=== PATIENT | male | born 2005 | race Two or more races ===

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

== ENCOUNTER 2025-01-05 18:12 | Emergency (ER) | payer MEDICAID, SELFPAY ==
[2025-01-05 18:12] VITALS: BMI 26.6
[2025-01-05 18:31] VITALS: BP 115/62; PULSE 112; RESP 16; TEMP 37.1; O2SAT 98
--- NOTE | 2025-01-05 19:35 | EDNOTE_ITS ---
ED Fever RME/HPI General Chief Complaint: Fever Stated Complaint: FEVER/ ON CHEMO Time Seen by Provider: 01/05/25 18:45 Arrival date/time: 01/05/25 18:12 RME / HPI RME / HPI Narrative: 19-year-old male presents to the ED with complaint of low-grade temperature and sore throat. Patient has Hodgkin's lymphoma, diagnosed May 2024, and is currently undergoing chemo. His last white count was at 2.0 with an unknown absolute neutrophil count. His last chemo was 3 weeks ago and has been delayed several times due to the low ANC. He states his brother has been ill with similar symptoms. He has had runny nose, nasal congestion but denies ear pain, cough, nausea or vomiting, diarrhea or abdominal pain. Related Data Allergies Allergy/AdvReac Type Severity Reaction Status Date / Time Penicillins Allergy ITCHING Verified 01/05/25 18:14 Review of Systems Review of Systems Systems Reviewed: All systems reviewed, normal except as documented Past Medical History Social History SMOKING STATUS: Never smoker Past Medical History Comments [facility] COMMENT: Hodgkin's lymphoma, currently undergoing chemotherapy. Physical Exam Narrative Physical exam: Aaliyah 19-year-old male, no acute distress. Lungs are clear, regular rate and rhythm. Tender anterior cervical chain adenopathy is noted. TMs are without erythema, pharynx is with erythema and without exudate. Nares are with erythema and edema. Abdomen is soft and nontender. Extremities are without edema. Course Course Course Narrative: 19-year-old male presents to the ED with complaint of low-grade temperature and sore throat. Patient has Hodgkin's lymphoma, diagnosed May 2024, and is currently undergoing chemo. His last white count was at 2.0 with an unknown absolute neutrophil count. His last chemo was 3 weeks ago and has been delayed several times due to the low ANC. He states his brother has been ill with similar symptoms. He has had runny nose, nasal congestion but denies ear pain, cough, nausea or vomiting, diarrhea or abdominal pain. Aaliyah 19-year-old male, no acute distress. Lungs are clear, regular rate and rhythm. Tender anterior cervical chain adenopathy is noted. TMs are without erythema, pharynx is with erythema and without exudate. Nares are with erythema and edema. Abdomen is soft and nontender. Extremities are without edema. Orders Category Date Time Status Bedside COVID-19 Antigen Test NOW Care 01/05/25 19:41 Active Bedside Influenza A&B Antigen Test NOW Care 01/05/25 19:41 Completed XR chest 2V Stat Exams 01/05/25 21:13 Completed Blood Culture (Lab) Stat Lab 01/05/25 19:51 Received CBC Stat Lab 01/05/25 19:48 Completed CRP [C-Reactive Protein] Stat Lab 01/05/25 19:48 Completed Comprehensive Metabolic Panel Stat Lab 01/05/25 19:48 Completed ESR [Sed Rate (ESR)] Stat Lab 01/05/25 19:48 Completed LDH (Lactate Dehydrogenase) Stat Lab 01/05/25 19:48 Completed Lactate (Lactic Acid) Stat Lab 01/05/25 19:48 Completed Partial Thromboplastin Time Stat Lab 01/05/25 19:48 Completed Procalcitonin Stat Lab 01/05/25 19:48 Completed Prothrombin Time with INR Stat Lab 01/05/25 19:48 Completed Strep A Rapid Stat Lab 01/05/25 19:46 Completed Acetaminophen Supp [Tylenol Supp] Med 01/05/25 19:38 Discontinued 650 mg NJ Q8HR PRN Acetaminophen Tab [Tylenol Tab] Med 01/05/25 21:11 Discontinued 650 mg PO X1 ONE Vital Signs Vital signs: Vital Signs Temperature 98.8 F 01/05/25 18:31 Pulse Rate 112 H 01/05/25 18:31 Respiratory Rate 16 01/05/25 18:31 Blood Pressure 115/62 01/05/25 18:31 Pulse Oximetry (%) 98 01/05/25 18:31 Oxygen Delivery Method Room Air 01/05/25 18:31 Fever Medications / Prescriptions Medication administrations:: Medication Administration History Discontinued Medications Acetaminophen (Acetaminophen Supp 650 Mg Supp) 650 mg NJ Q8HR PRN PRN Reason: Fever > 100.4 Stop: 02/04/25 19:37 Acetaminophen (Acetaminophen 325 Mg Tablet) 650 mg PO X1 ONE Stop: 01/05/25 21:12 Last Admin: 01/05/25 22:22 Dose: 650 mg Documented By: GUILLE Discharge Plan Plan Patient Disposition: HOME (Self Care) Discharge Disposition comment: Stable Prescriptions/Referrals Referrals: No Primary/Family,Physician [Primary Care Provider] - In 1 week Problem List Clinical Impression: Fever of unknown origin Patient/Caregiver Discharge Instructions Education Materials: ED FUO Adult Additional Instructions: Contact Dr. Ashby's office first thing Monday morning to schedule an appointment for urgent follow-up. Follow-up with your primary care physician within 24 hours. Return to the ED for any new or worsening symptoms. Print Language: Bermudian Stand Alone Forms: Marii Award Info., Patient Portal Info Letter PA/ORACLE HYPERION CONSULTANT Supervising Physician PA/ORACLE HYPERION CONSULTANT Supervising Physician: Dr. Benton
[2025-01-05 20:01] LABS: Lactate (Lactic Acid) 0.8 mMol/L (0.4-2.0)
[2025-01-05 20:04] LABS: Basophils # (Auto) 0.1 Thou/mm3 (0.0-0.2); Basophils % (Auto) 1 % (0-2.5); Eosinophils # (Auto) 0.2 Thou/mm3 (0.0-0.5); Eosinophils % (Auto) 2 % (0-10); Hematocrit 39.2 % (41.0-53.0); Hemoglobin 12.9 g/dL (13.5-16.0); Immature Granulocytes % (Auto) 0 % (0-0); Immature Granulocytes Auto 0.01 Thou/mm3 (0.00-0.00); Lymphocytes # (Auto) 1.2 Thou/mm3 (1.0-5.0); Lymphocytes % (Auto) 12 % (10-50); Mean Corpuscular HGB Conc 32.9 g/dl (31.0-37.0); Mean Corpuscular Hemoglobin 26.3 pg (25.0-35.0); Mean Corpuscular Volume 80 fL (80-100); Monocytes # (Auto) 0.7 Thou/mm3 (0.0-0.8); Monocytes % (Auto) 7 % (0-12); Neutrophils # (Auto) 7.8 Thou/mm3 (1.8-7.7); Neutrophils % (Auto) 79 % (37-80); Nucleated Red Blood Cell % 0 /100 WBC (0); Platelet Count 274 Thou/mm3 (140-440); RDW Standard Deviation 50.2 fL (35.1-43.9); Red Blood Count 4.91 Miln/mm3 (4.50-5.90); White Blood Count 9.9 Thou/mm3 (4.5-11.0)
[2025-01-05 20:16] LABS: Sed Rate (ESR) 14 mm/hr (0-15)
[2025-01-05 20:17] LABS: INR 1.1 (0.9-1.3); Partial Thromboplastin Time 26.3 Seconds (22.0-36.0); Prothrombin Time 11.6 Seconds (9.0-12.2)
[2025-01-05 20:18] LABS: Strep A Rapid Negative (Negative)
[2025-01-05 20:37] LABS: Alanine Aminotransferase 74 U/L (10-49); Albumin, Serum 4.7 gm/dL (3.5-5.0); Alkaline Phosphatase 166 U/L (46-116); Anion Gap 10 (7-16); BUN/Creatinine Ratio 24 Ratio (12-20); Bilirubin,Total 0.2 mg/dL (0.3-1.2); Blood Urea Nitrogen 19 mg/dL (9-23); Chloride 109 mMol/L (98-107); Creatinine (Component) 0.8 mg/dL (0.6-1.3); Estimated Creatinine Clearance 138.9 mL/min (>60); Globulin 2.3 gm/dL (2.3-3.5); Glucose 92 mg/dL (74-106); LDH (Lactate Dehydrogenase) 209 U/L (120-246); Osmolality,Calculated 292 (275-295); Potassium 4.2 mMol/L (3.4-5.1); Procalcitonin 0.08 ng/ml (0.0-0.49); Sodium 146 mMol/L (136-145); eGFR > 60 See Note
[2025-01-05 20:39] LABS: C-Reactive Protein < 0.5 mg/dL (0.0-0.9)
--- NOTE | 2025-01-05 21:13 | XR_ITS ---
Examination: PA lateral chest 2 views TECHNIQUE: Upright PA and lateral chest 2 views Date time: January 05, [id number] hours INDICATIONS: Sore throat congestion today, diagnosis Hodgkin's lymphoma undergoing chemotherapy FINDINGS: Normal heart size No pneumonia or pulmonary edema Right subclavian Port-A-Cath tip satisfactory position IMPRESSION: No pneumonia or pulmonary edema
[2025-01-05] MEDS: ACETAMINOPHEN 325 MG TABLET 650 MG PO (22:22)
[2025-01-05] MEDS: cefTRIAXone 1,000 MG, LIDOCAINE 1% 20 ML 2.1 ML IM (23:46)
== END 2025-01-05 23:49 | disposition home or self-care (01) ==
PROVIDERS: Physician Assistant; Emergency Provider Emergency Medicine
DX: R50.9 Fever, unspecified (principal); R09.89 Other specified symptoms and signs involving the circulatory and respiratory systems; R09.81 Nasal congestion; C81.90 Hodgkin lymphoma, unspecified, unspecified site
CPT/HCPCS: 36415; 71046; 80053; 83605; 83615; 84145; 85025; 85610; 85652; 85730; 86140; 87040; 87400; 87651; 87811; 96372; 99283; J0696; J3490; A9270

== ENCOUNTER 2025-01-07 01:13 | Emergency (ER) | payer OTHER, MEDICAID, SELFPAY ==
[2025-01-07 01:15] VITALS: BMI 10.9
[2025-01-07 01:29] VITALS: BP 111/53; PULSE 112; RESP 16; TEMP 38.2; O2SAT 97
--- NOTE | 2025-01-07 01:39 | EDNOTE_ITS ---
<Statement entered by Lorrie Montoya MD - 01/22/25 21:07> As co-signing physician, I was present and available for consult prn. I concur with the plan and care as documented by the midlevel provider. ED Fever RME/HPI General Chief Complaint: Fever Stated Complaint: FEVER Time Seen by Provider: 01/07/25 01:30 Arrival date/time: 01/07/25 01:13 RME / HPI RME / HPI Narrative: Very pleasant 19-year-old male, with a medical history including Hodgkin's lymphoma, currently on chemo, presents to the ED with a complaint of fever of 101.8. He was seen here a few nights ago with a low-grade fever of 100.5. A complete workup was done however no source of infection was found. His previous white count was 2.0 and was elevated at his last visit, his ANC is usually at 0.5 and it was also elevated significantly higher at his last visit. Mother is concerned because his brother is ill with viral URIs. Related Data Allergies Allergy/AdvReac Type Severity Reaction Status Date / Time Penicillins Allergy ITCHING Verified 01/05/25 18:14 Review of Systems Review of Systems Systems Reviewed: All systems reviewed, normal except as documented Past Medical History Past Medical History CARDIAC: Negative Congestive Heart Failure RESPIRATORY: Negative Chronic Obstructive Pulmonary Disease (COPD) GENITOURINARY: Negative Renal Disease ENDOCRINE: Negative Diabetes Mellitus Type 1 or Diabetes Mellitus Type 2 Social History SMOKING STATUS: Never smoker Physical Exam Narrative Physical exam: Pleasant 19-year-old male, no acute distress. Non-toxic appearing. Lungs are clear, regular rate and rhythm. Tender anterior cervical chain adenopathy is noted. Abdomen is soft and nontender. Extremities are without edema. Course Course Course Narrative: COVID, influenza A/B are negative. Rapid strep is also negative. Labs reveal a white count of 4.0, low H&H of 12.5/37.5, absolute neutrophil count of 2.1. PT is minimally elevated at 12.4. ABG is normal. Chemistry panel reveals minimally elevated chloride at 108, phosphorus, magnesium, lactic acid, LDH, troponin, lipase, and procalcitonin are all normal. Urinalysis reveals clear yellow urine with a specific gravity of 1.039 with no bacteria, negative leukocyte esterase, negative nitrates. Chest x-ray obtained with no acute process noted. Patient will be discharged home with instruction to follow-up with his oncologist. Quality Measures Current suspected stage: ruled out Reason for ruling out sepsis: Normal white count, normal lactic, normal procalcitonin, negative urine and Possible source: unknown Blood cultures ordered: yes Antibiotic ordered: No Pertinent labs: 01/07/25 02:34 Lactic Acid 0.8 mMol/L (0.4-2.0) Procalcitonin 0.13 ng/ml (0.0-0.49) sepsis Orders Category Date Time Status Bedside COVID-19 Antigen Test NOW Care 01/07/25 01:42 Completed Bedside Influenza A&B Antigen Test NOW Care 01/07/25 01:44 Completed Assistant Sales Manager STAT Care 01/07/25 01:42 Completed Continuous Pulse Oximetry STAT Care 01/07/25 01:42 Completed EKG (ED ONLY) *Do not use* NOW Care 01/07/25 01:42 Completed Insert IV NOW Care 01/07/25 01:42 Completed NPO STAT Care 01/07/25 01:42 Completed Strict Intake and Output Routine Care 01/07/25 01:42 Ordered EKG (ED Only) Stat Exams 01/07/25 01:42 Draft XR chest 2V Stat Exams 01/07/25 04:29 Completed Arterial Blood Gas Stat Lab 01/07/25 03:33 Completed Blood Culture (Lab) Stat Lab 01/07/25 02:39 Completed CBC Stat Lab 01/07/25 02:34 Completed Comprehensive Metabolic Panel Stat Lab 01/07/25 02:34 Completed LDH (Lactate Dehydrogenase) Stat Lab 01/07/25 02:34 Completed Lactate (Lactic Acid) Stat Lab 01/07/25 02:34 Completed Lipase Stat Lab 01/07/25 02:34 Completed Magnesium Stat Lab 01/07/25 02:34 Completed Partial Thromboplastin Time Stat Lab 01/07/25 02:34 Completed Phosphorous Stat Lab 01/07/25 02:34 Completed Procalcitonin Stat Lab 01/07/25 02:34 Completed Prothrombin Time with INR Stat Lab 01/07/25 02:34 Completed Strep A Rapid Stat Lab 01/07/25 03:27 Completed Troponin I Stat Lab 01/07/25 02:34 Completed Urinalysis Stat Lab 01/07/25 02:44 Completed Urine Culture Stat Lab 01/07/25 02:44 Completed Acetaminophen Tab [Tylenol ES Tab] Med 01/07/25 02:19 Discontinued 1,000 mg PO X1 ONE Vital Signs Vital signs: Vital Signs Temperature 100.8 F H 01/07/25 01:29 Pulse Rate 112 H 01/07/25 01:29 Respiratory Rate 16 01/07/25 01:29 Blood Pressure 111/53 L 01/07/25 01:29 Pulse Oximetry (%) 97 01/07/25 01:29 Oxygen Delivery Method Room Air 01/07/25 01:29 Fever MDM Narrative MDM Narrative:: Very pleasant 19-year-old male, with a medical history including Hodgkin's lymphoma, currently on chemo, presents to the ED with a complaint of fever of 101.8. He was seen here a few nights ago with a low-grade fever of 100.5. A complete workup was done however no source of infection was found. His previous white count was 2.0 and was elevated at his last visit, his ANC is usually at 0.5 and it was also elevated significantly higher at his last visit. Mother is concerned because his brother is ill with viral URIs. Pleasant 19-year-old male, no acute distress. Non-toxic appearing. Lungs are clear, regular rate and rhythm. Tender anterior cervical chain adenopathy is noted. Abdomen is soft and nontender. Extremities are without edema. Vital signs blood pressure 111/53, pulse 112, respirations 16 and nonlabored, temperature 100.8, O2 sat 97% on room air. COVID, influenza A/B are negative. Rapid strep is also negative. Labs reveal a white count of 4.0, low H&H of 12.5/37.5, absolute neutrophil count of 2.1. PT is minimally elevated at 12.4. ABG is normal. Chemistry panel reveals minimally elevated chloride at 108, phosphorus, magnesium, lactic acid, LDH, troponin, lipase, and procalcitonin are all normal. Urinalysis reveals clear yellow urine with a specific gravity of 1.039 with no bacteria, negative leukocyte esterase, negative nitrates. Chest x-ray obtained with no acute process noted. Patient will be discharged home with instruction to follow-up with his oncologist. Patient data External records reviewed:: [facility] previous records Clinical information provided by:: patient Social determinants that could affect healthcare access:: none Patient has the following chronic illnesses:: Hodgkin's lymphoma How is presenting disease/condition affected by chronic disease/condition?: caused by Evaluation data The following diagnostics were reviewed and interpreted by me:: lab results and radiology exam(s) Lab and/or radiology exams considered but not ordered:: N/A Interpretation Summary: COVID, influenza A/B are negative. Rapid strep is also negative. Labs reveal a white count of 4.0, low H&H of 12.5/37.5, absolute neutrophil count of 2.1. PT is minimally elevated at 12.4. ABG is normal. Chemistry panel reveals minimally elevated chloride at 108, phosphorus, magnesium, lactic acid, LDH, troponin, lipase, and procalcitonin are all normal. Urinalysis reveals clear yellow urine with a specific gravity of 1.039 with no bacteria, negative leukocyte esterase, negative nitrates. Chest x-ray obtained with no acute process noted. Medications / Prescriptions Medications or Prescriptions considered but not ordered:: N/A Medication administrations:: Medication Administration History Discontinued Medications Acetaminophen (Acetaminophen 500 Mg Tablet) 1,000 mg PO X1 ONE Stop: 01/07/25 02:20 Last Admin: 01/07/25 05:12 Dose: 1,000 mg Documented By: CVL Tylenol 1 g p.o. Consultations Consultation(s) initiated? (list below): No Diagnosis Fever Differential Diagnosis: cellulitis, fever of unknown origin, gastroenteritis, community acquired pneumonia, pyelonephritis, viral infection, sepsis and influenza Most likely diagnosis given after review of the tests above:: Fever of unknown origin Admission Indicated Admission indicated?: not indicated Explain why admission is indicated or not indicated:: Patient is stable for discharge Admission Request Was there a request for admission?: No Disposition Plan Disposition Plan: Discharge Discharge Attestation Discharge Attestation: The patient and all family members were given an opportunity to ask questions and understood the discharge instructions. Discharge instructions specifically effects, indications for sooner follow up or return to the emergency department, and the expected course of current diagnosis. Patient condition: Stable Discharge Plan Plan Patient Disposition: HOME (Self Care) Discharge Disposition comment: Stable Prescriptions/Referrals Referrals: Anmol Ashby MD [Primary Care Provider] - In 1 week Problem List Clinical Impression: Fever of unknown origin Patient/Caregiver Discharge Instructions Education Materials: ED FUO Adult Additional Instructions: Follow-up with your oncologist later this morning. Return to the emergency room room for any new or worsening symptoms. Print Language: Yi Stand Alone Forms: Marii Award Info., Patient Portal Info Letter PA/MAGNETIC HEALER Supervising Physician PA/MAGNETIC HEALER Supervising Physician: Dr. Montoya
--- NOTE | 2025-01-07 01:42 | EKG_ITS ---
[facility] Test Date: 2025-01-07 Pat Name: JEWELL CAMPBELL Department: Room: - Gender: Male Educational Adviser: : 2005 Requested By: Domonique Severino Order Number: [id number] Reading MD: Domonique Severino Measurements Intervals [place] Rate: 119 P: 69 SC: 120 QRS: 62 QRSD: 80 T: 57 QT: 273 QTc: 385 Interpretive Statements SINUS TACHYCARDIA ABNORMAL RHYTHM ECG Compared to ECG 11/20/2024 23:33:09 No significant changes /store/S0/[id number].pdf
[2025-01-07 02:49] LABS: Collection Type, Urine Clean Catch
[2025-01-07 02:50] LABS: Lactate (Lactic Acid) 0.8 mMol/L (0.4-2.0)
[2025-01-07 02:58] LABS: Basophils % (Auto) 1 % (0-2.5); Eosinophils # (Auto) 0.1 Thou/mm3 (0.0-0.5); Eosinophils % (Auto) 2 % (0-10); Hematocrit 37.5 % (41.0-53.0); Hemoglobin 12.5 g/dL (13.5-16.0); Immature Granulocytes % (Auto) 1 % (0-0); Immature Granulocytes Auto 0.02 Thou/mm3 (0.00-0.00); Lymphocytes # (Auto) 1.1 Thou/mm3 (1.0-5.0); Lymphocytes % (Auto) 28 % (10-50); Mean Corpuscular HGB Conc 33.3 g/dl (31.0-37.0); Mean Corpuscular Hemoglobin 26.2 pg (25.0-35.0); Mean Corpuscular Volume 79 fL (80-100); Monocytes # (Auto) 0.6 Thou/mm3 (0.0-0.8); Monocytes % (Auto) 15 % (0-12); Neutrophils # (Auto) 2.1 Thou/mm3 (1.8-7.7); Neutrophils % (Auto) 54 % (37-80); Nucleated Red Blood Cell % 0 /100 WBC (0); Platelet Count 228 Thou/mm3 (140-440); RDW Standard Deviation 48.1 fL (35.1-43.9); Red Blood Count 4.77 Miln/mm3 (4.50-5.90)
[2025-01-07 03:05] LABS: INR 1.1 (0.9-1.3); Partial Thromboplastin Time 29.7 Seconds (22.0-36.0); Prothrombin Time 12.4 Seconds (9.0-12.2)
[2025-01-07 03:08] LABS: Bilirubin,Urine Negative (Negative); Blood,Urine Trace (Negative); Clarity,Urine Clear (Clear/Hazy); Color,Urine Yellow (Lt Yel-Yel); Glucose, Urine Negative (Negative); Ketones,Urine Negative (Negative); Leukocyte Esterase,Urine Negative (Negative); Nitrite,Urine Negative (Negative); Protein,Urine Trace (Neg - Trace); RBC,Urine 3 /hpf (0-3); Specific Gravity,Urine 1.039 (1.001-1.035); Squamous Epithelial Cell,Urine 1 /hpf (0-5); Urobilinogen,Urine Negative mg/dL (0.0-1.0); WBC,Urine 3 /hpf (0-5)
[2025-01-07 03:25] LABS: Alanine Aminotransferase 93 U/L (10-49); Albumin, Serum 4.6 gm/dL (3.5-5.0); Albumin/Globulin Ratio 2.2 (1.2-2.2); Alkaline Phosphatase 137 U/L (46-116); Anion Gap 10 (7-16); BUN/Creatinine Ratio 24 Ratio (12-20); Bilirubin,Total 0.3 mg/dL (0.3-1.2); Blood Urea Nitrogen 19 mg/dL (9-23); Carbon Dioxide 24.8 mMol/L (20.0-31.0); Chloride 108 mMol/L (98-107); Creatinine (Component) 0.8 mg/dL (0.6-1.3); Estimated Creatinine Clearance 66.7 mL/min (>60); Globulin 2.1 gm/dL (2.3-3.5); Glucose 96 mg/dL (74-106); LDH (Lactate Dehydrogenase) 204 U/L (120-246); Lipase 36 U/L (12-53); Magnesium 1.7 mg/dL (1.6-2.6); Osmolality,Calculated 287 (275-295); Phosphorous 4.3 mg/dL (2.4-5.1); Potassium 3.9 mMol/L (3.4-5.1); Procalcitonin 0.13 ng/ml (0.0-0.49); Sodium 143 mMol/L (136-145); Total Protein 6.7 gm/dL (5.7-8.2); Troponin I 0.025 ng/mL (0.0-0.045); eGFR > 60 See Note
[2025-01-07 03:38] LABS: Base Excess 0 (-3-3); HCO3 25 mEq/L (20-26); Inspired Oxygen, FIO2 21 %; O2 Saturation 98 % (91-98); PCO2 42 mmHg (32.0-48.0); PO2 95 mmHg (83-108); pH, Arterial 7.39 (7.35-7.45)
[2025-01-07 03:57] LABS: Allen Test Performed/OK; Puncture Site Right Radial
--- NOTE | 2025-01-07 04:29 | XR_ITS ---
Examination: PA lateral chest 2 views TECHNIQUE: Upright PA and lateral chest 2 views Date and time: January 07, 2025 at 0503 hours INDICATIONS: Fever today FINDINGS: Normal heart size Lungs are clear. The osseous structures are intact Right internal jugular Port-A-Cath tip satisfactory position SVC IMPRESSION: No pneumonia or pulmonary edema
[2025-01-07 04:43] LABS: Strep A Rapid Negative (Negative)
[2025-01-07 05:12] VITALS: TEMP 36.9
[2025-01-07] MEDS: ACETAMINOPHEN 500 MG TABLET 1000 MG PO (05:12)
[2025-01-07 06:27] VITALS: RESP 18
== END 2025-01-07 06:28 | disposition home or self-care (01) ==
PROVIDERS: Physician Assistant; Emergency Provider Emergency Medicine; PCP Internal Medicine Hematology & Oncology
DX: R50.9 Fever, unspecified (principal); C81.90 Hodgkin lymphoma, unspecified, unspecified site
CPT/HCPCS: 36415; 36600; 71046; 80053; 81001; 82803; 83605; 83615; 83690; 83735; 84100; 84145; 84484; 85025; 85610; 85730; 87040; 87086; 87400; 87651; 87811; 93005; 99284; A9270

== ENCOUNTER 2025-01-22 11:01 | Outpatient (RCR) | payer MEDICAID, SELFPAY ==
[2025-01-01 12:34] LABS: Basophils % (Auto) 2 % (0-2.5); Eosinophils # (Auto) 0.1 Thou/mm3 (0.0-0.5); Eosinophils % (Auto) 3 % (0-10); Hemoglobin 12.8 g/dL (13.5-16.0); Immature Granulocytes % (Auto) 1 % (0-0); Immature Granulocytes Auto 0.01 Thou/mm3 (0.00-0.00); Lymphocytes # (Auto) 1.1 Thou/mm3 (1.0-5.0); Lymphocytes % (Auto) 53 % (10-50); Mean Corpuscular HGB Conc 33.7 g/dl (31.0-37.0); Mean Corpuscular Hemoglobin 26.6 pg (25.0-35.0); Mean Corpuscular Volume 79 fL (80-100); Monocytes # (Auto) 0.4 Thou/mm3 (0.0-0.8); Monocytes % (Auto) 17 % (0-12); Neutrophils # (Auto) 0.5 Thou/mm3 (1.8-7.7); Neutrophils % (Auto) 25 % (37-80); Nucleated Red Blood Cell % 0 /100 WBC (0); Platelet Count 256 Thou/mm3 (140-440); Red Blood Count 4.81 Miln/mm3 (4.50-5.90)
[2025-01-01 13:08] LABS: Alanine Aminotransferase 47 U/L (10-49); Albumin, Serum 4.5 gm/dL (3.5-5.0); Albumin/Globulin Ratio 2.1 (1.2-2.2); Alkaline Phosphatase 102 U/L (46-116); Anion Gap 12 (7-16); Aspartate Amino Transferase 37 U/L (0-34); BUN/Creatinine Ratio 21 Ratio (12-20); Bilirubin,Total 0.4 mg/dL (0.3-1.2); Blood Urea Nitrogen 15 mg/dL (9-23); Calcium 8.9 mg/dL (8.3-10.6); Calcium (Corrected) 8.9 mg/dL (8.5-10.1); Carbon Dioxide 25.8 mMol/L (20.0-31.0); Chloride 105 mMol/L (98-107); Creatinine (Component) 0.7 mg/dL (0.6-1.3); Free T4 (Free Thyroxine) 1.19 ng/dL (0.89-1.76); Globulin 2.1 gm/dL (2.3-3.5); Glucose 79 mg/dL (74-106); LDH (Lactate Dehydrogenase) 199 U/L (120-246); Osmolality,Calculated 284 (275-295); Potassium 3.9 mMol/L (3.4-5.1); Sodium 143 mMol/L (136-145); Thyroid Stimulating Hormone 1.87 uIU/mL (0.55-4.78); Total Protein 6.6 gm/dL (5.7-8.2); Uric Acid 4.3 mg/dL (3.7-9.2); eGFR > 60 See Note
[2025-01-06 08:51] LABS: Basophils % (Auto) 1 % (0-2.5); Eosinophils # (Auto) 0.1 Thou/mm3 (0.0-0.5); Eosinophils % (Auto) 2 % (0-10); Hemoglobin 12.6 g/dL (13.5-16.0); Immature Granulocytes % (Auto) 0 % (0-0); Immature Granulocytes Auto 0.02 Thou/mm3 (0.00-0.00); Lymphocytes # (Auto) 0.9 Thou/mm3 (1.0-5.0); Lymphocytes % (Auto) 16 % (10-50); Mean Corpuscular HGB Conc 32.3 g/dl (31.0-37.0); Mean Corpuscular Hemoglobin 26.8 pg (25.0-35.0); Mean Corpuscular Volume 83 fL (80-100); Monocytes # (Auto) 0.5 Thou/mm3 (0.0-0.8); Monocytes % (Auto) 9 % (0-12); Neutrophils % (Auto) 73 % (37-80); Nucleated Red Blood Cell % 0 /100 WBC (0); Platelet Count 256 Thou/mm3 (140-440); RDW Standard Deviation 50.6 fL (35.1-43.9); Red Blood Count 4.71 Miln/mm3 (4.50-5.90); White Blood Count 5.5 Thou/mm3 (4.5-11.0)
[2025-01-06 09:31] LABS: Alanine Aminotransferase 92 U/L (10-49); Albumin, Serum 4.7 gm/dL (3.5-5.0); Albumin/Globulin Ratio 2.4 (1.2-2.2); Alkaline Phosphatase 147 U/L (46-116); Anion Gap 9 (7-16); BUN/Creatinine Ratio 23 Ratio (12-20); Bilirubin,Total 0.4 mg/dL (0.3-1.2); Blood Urea Nitrogen 16 mg/dL (9-23); Calcium 9.5 mg/dL (8.3-10.6); Calcium (Corrected) 9.5 mg/dL (8.5-10.1); Carbon Dioxide 24.8 mMol/L (20.0-31.0); Chloride 105 mMol/L (98-107); Creatinine (Component) 0.7 mg/dL (0.6-1.3); Glucose 102 mg/dL (74-106); Osmolality,Calculated 278 (275-295); Potassium 3.9 mMol/L (3.4-5.1); Sodium 139 mMol/L (136-145); Total Protein 6.7 gm/dL (5.7-8.2); eGFR > 60 See Note
[2025-01-06 13:01] LABS: Aspartate Amino Transferase 65 U/L (0-34)
[2025-01-10 09:06] LABS: Basophils % (Auto) 1 % (0-2.5); Eosinophils # (Auto) 0.2 Thou/mm3 (0.0-0.5); Eosinophils % (Auto) 8 % (0-10); Hematocrit 36.5 % (41.0-53.0); Hemoglobin 12.2 g/dL (13.5-16.0); Immature Granulocytes % (Auto) 1 % (0-0); Immature Granulocytes Auto 0.01 Thou/mm3 (0.00-0.00); Lymphocytes # (Auto) 1.2 Thou/mm3 (1.0-5.0); Lymphocytes % (Auto) 55 % (10-50); Mean Corpuscular HGB Conc 33.4 g/dl (31.0-37.0); Mean Corpuscular Hemoglobin 26.2 pg (25.0-35.0); Mean Corpuscular Volume 78 fL (80-100); Monocytes # (Auto) 0.4 Thou/mm3 (0.0-0.8); Monocytes % (Auto) 16 % (0-12); Neutrophils # (Auto) 0.4 Thou/mm3 (1.8-7.7); Neutrophils % (Auto) 20 % (37-80); Nucleated Red Blood Cell % 0 /100 WBC (0); Platelet Count 245 Thou/mm3 (140-440); RDW Standard Deviation 45.2 fL (35.1-43.9); Red Blood Count 4.66 Miln/mm3 (4.50-5.90)
[2025-01-10 09:10] LABS: White Blood Count 2.2 Thou/mm3 (4.5-11.0)
[2025-01-10 09:39] LABS: Alanine Aminotransferase 52 U/L (10-49); Albumin, Serum 4.3 gm/dL (3.5-5.0); Albumin/Globulin Ratio 2.2 (1.2-2.2); Alkaline Phosphatase 104 U/L (46-116); Anion Gap 7 (7-16); Aspartate Amino Transferase 28 U/L (0-34); BUN/Creatinine Ratio 27 Ratio (12-20); Bilirubin,Total 0.4 mg/dL (0.3-1.2); Blood Urea Nitrogen 16 mg/dL (9-23); Calcium 8.8 mg/dL (8.3-10.6); Calcium (Corrected) 8.8 mg/dL (8.5-10.1); Chloride 108 mMol/L (98-107); Creatinine (Component) 0.6 mg/dL (0.6-1.3); Free T4 (Free Thyroxine) 1.25 ng/dL (0.89-1.76); Glucose 88 mg/dL (74-106); Osmolality,Calculated 281 (275-295); Potassium 3.8 mMol/L (3.4-5.1); Sodium 141 mMol/L (136-145); Thyroid Stimulating Hormone 3.35 uIU/mL (0.55-4.78); Total Protein 6.3 gm/dL (5.7-8.2); eGFR > 60 See Note
[2025-01-13 08:52] LABS: Basophils % (Auto) 1 % (0-2.5); Eosinophils # (Auto) 0.2 Thou/mm3 (0.0-0.5); Eosinophils % (Auto) 6 % (0-10); Hematocrit 38.5 % (41.0-53.0); Hemoglobin 12.5 g/dL (13.5-16.0); Immature Granulocytes % (Auto) 0 % (0-0); Lymphocytes # (Auto) 1.7 Thou/mm3 (1.0-5.0); Lymphocytes % (Auto) 52 % (10-50); Mean Corpuscular HGB Conc 32.5 g/dl (31.0-37.0); Mean Corpuscular Hemoglobin 26.2 pg (25.0-35.0); Mean Corpuscular Volume 81 fL (80-100); Monocytes # (Auto) 0.4 Thou/mm3 (0.0-0.8); Monocytes % (Auto) 11 % (0-12); Neutrophils % (Auto) 31 % (37-80); Nucleated Red Blood Cell % 0 /100 WBC (0); Platelet Count 266 Thou/mm3 (140-440); RDW Standard Deviation 46.1 fL (35.1-43.9); Red Blood Count 4.77 Miln/mm3 (4.50-5.90); White Blood Count 3.2 Thou/mm3 (4.5-11.0)
== END 2025-01-27 23:59 | disposition home or self-care (01) ==
LOC: SCTC 11:01
PROVIDERS: PCP Internal Medicine Hematology; Referring Provider Internal Medicine Hematology; Visit Provider Internal Medicine Hematology & Oncology
DX: Z51.11 Encounter for antineoplastic chemotherapy (principal); C81.90 Hodgkin lymphoma, unspecified, unspecified site; D70.9 Neutropenia, unspecified
CPT/HCPCS: 36591; 80053; 83615; 84439; 84443; 84450; 84550; 85025; 96360; 96367; 96372; 96411; 96413; 96417; A4216; J1100; J1453; J1642; J2405; J7030; J7040; J7050; J9000; J9130; J9299; J9360; Q5101; A9270

== ENCOUNTER → 2025-02-16 | Outpatient (CLI) | payer MEDICAID, SELFPAY ==
--- NOTE | 2025-02-16 12:30 | ECHO_ITS ---
Transthoracic Echo Report Ht (in): 67 Wt (lb): 170 Exam Location: Echo Lab Status: Preadmit Pattern Lease Inspector: Kisha Hastings Indications: Procedure Performed: BP: / HR: Technical Quality: Technically difficult study MEASUREMENTS (Male / Female) Normal Values 2D ECHO LV Diastolic Diameter PLAX 4.6 cm 4.2 - 5.9 / 3.9 - 5.3 cm LV Systolic Diameter PLAX 3.1 cm IVS Diastolic Thickness 0.8 cm 0.6 - 1.0 / 0.6 - 0.9 cm LVPW Diastolic Thickness 0.9 cm 0.6 - 1.0 / 0.6 - 0.9 cm LV Relative Wall Thickness 0.4 LVOT Diameter 1.8 cm Aortic Root Diameter 2.5 cm LA Volume Index 15.6 cm?/m? 16 - 28 cm?/m? M-MODE Aortic Root Diameter MM 2.6 cm LA Systolic Diameter MM 2.4 cm LA Ao Ratio MM 0.9 AV Cusp Separation MM 1.6 cm DOPPLER AV Peak Velocity 108.3 cm/s AV Peak Gradient 4.7 mmHg AV Mean Gradient 2.0 mmHg AV Velocity Time Integral 19.6 cm LVOT Peak Velocity 90.1 cm/s LVOT Peak Gradient 3.3 mmHg LVOT Velocity Time Integral 14.8 cm AV Area Cont Eq vti 1.9 cm? AV Area Cont Eq pk 2.1 cm? MV Area PHT 5.8 cm? Mitral E Point Velocity 83.4 cm/s Mitral A Point Velocity 85.4 cm/s Mitral E to A Ratio 1.0 LV E' Lateral Velocity 15.7 cm/s Mitral E to LV E' Lateral Ratio 5.3 LV E' Septal Velocity 11.1 cm/s Mitral E to LV E' Septal Ratio 7.5 PV Peak Velocity 95.0 cm/s PV Peak Gradient 3.6 mmHg FINDINGS Left Ventricle Normal left ventricular size, wall thickness, systolic function with no obvious regional wall motion abnormalities. Normal left ventricular diastolic filling pattern for age. The ejection fraction is visually estimated at 65%. Right Ventricle The right ventricle is normal in size and systolic function. Left Atrium The left atrium is normal by two-dimensional, color flow and Doppler imaging with no structural abnormalities, no thrombus formation present. Right Atrium The right atrium is normal by two-dimensional imaging, color flow and Doppler imaging with no structural abnormalities, no thrombus formation present. Atrial Septum The interatrial septum appears normal with no evidence of a shunt. Aorta The aorta is normal by two-dimensional, color flow and Doppler interrogation. Mitral Valve The mitral valve is normal by two-dimensional, color flow and Doppler interrogation. There is no significant mitral valve regurgitation, stenosis or prolapse. Aortic Valve The aortic valve is trileaflet and normal by two-dimensional, color flow and Doppler interrogation. There is no significant aortic valve regurgitation. Tricuspid Valve The tricuspid valve is normal by two-dimensional, color flow and Doppler interrogation. There is trace tricuspid valve regurgitation. Pulmonic Valve The pulmonic valve is not well visualized. There is no significant pulmonic valve regurgitation. Vessels The pulmonary artery appears normal. The inferior vena cava pulmonary and hepatic veins appear normal. Pericardium The pericardium is normal by two-dimensional imaging. There is no significant pericardial effusion. CONCLUSIONS Indication: other Hodgkin lymphoma, unspecified site Normal LV size and function. Estimated EF at 65%. Normal RV size and function. Trace mitral and trace tricuspid regurgitation Malinda Morillo (Electronically Signed) Final Date: 16 February 2025 16:23
== END | disposition home or self-care (01) ==
PROVIDERS: Referring Provider Internal Medicine Hematology & Oncology; Visit Provider Internal Medicine Hematology & Oncology
DX: I08.1 Rheumatic disorders of both mitral and tricuspid valves (principal); C81.70 Other Hodgkin lymphoma, unspecified site; C81.72 Other Hodgkin lymphoma, intrathoracic lymph nodes
CPT/HCPCS: 93306

== ENCOUNTER 2025-04-22 15:04 | Outpatient (RCR) | payer OTHER, SELFPAY ==
--- NOTE | 2025-04-06 22:40 | CTCFLWUP_ITS ---
Patient: JEWELL CAMPBELL : 2005 Page 2 of 4 FOLLOW UP NOTE DATE OF SERVICE: 04/02/2025 NAME: JEWELL CAMPBELL ACCOUNT: [id number] : 2005 AGE: 19 INTERVAL HISTORY: Arafi, a patient with Hodgkin lymphoma is s/p chemotherapy. Patient is complaining with lymph node swelling and vertigo. Patient is concerning for recurrence. Medical History - Lymphoma, completed treatment Medications and Supplements - Zarxio - Recently increased due to low cell counts - ABVD - Full ABVD for first treatment cycle - Immunotherapy - Used instead of bleomycin ONCOLOGY HISTORY: DIAGNOSIS: Hodgkin lymphoma DATE OF DIAGNOSIS: 06/23/2024 STAGE/TNM: High risk TREATMENT HISTORY: Care?Plan Start?Date Cycle Day Intent ABVD 09/09/2024 1 28 Curative?(primary) OPDIvo?every?2?weeks?x?1?year 09/09/2024 1 14 Curative?(adjuvant) HISTORY OF PRESENT ILLNESS: 19-year-old male was seen in the [facility]. Patient's note by Dr. Susan Dasilva as below Reviewed. patient was complaining of right-sided neck swelling which started about 2 months ago. Patient has also having bleeding symptoms as well as dysphagia with some chest discomfort and nausea. CT scan was obtained which showed conglomerate anterior mediastinal mass with nodular areas in the left mediastinum about 8 x 6 cm. Serum alpha-fetoprotein and beta-hCG was normal. Patient had pathology which showed Marvin-Jose M cells confirming Hodgkin's lymphoma. Bone marrow biopsy was completed which was negative Patient received first cycle of chemotherapy with ABVD inpatient. Plan was to do N+ AVD for 6 cycles as patient is young and N AVD showed improved PFS and overall survival compared with a AVD. CBC CMP LDH ESR hepatitis panel and HIV were obtained ejection fraction was 76%. Patient got prophylaxis with acyclovir and Bactrim double strength. Plan was to transfuse if hemoglobin is less than 8 and platelet less than 20K irradiated. Patient also on TLS prophylaxis with allopurinol. OTHER MEDICAL HISTORY/CONDITIONS: Classica lHodgins Lymphoma - dx 06/24/24 Hypothyroid Bone Marrow Biopsy - 06/24/24 PC placement 07/12/24 FAMILY HISTORY: Patient?denies?family?cancer?history. SOCIAL HISTORY: Occupational?History:?Student - [employer] Education?Level:?Completed High School Marital?Status:?Single Tobacco?Use:?Denies ETOH?Use:?Denies Drug?Note:?Denies Social History Note:?Living with parents MEDICATIONS: 1. acyclovir - 400 mg 1 tab Twice a Day 2. Bactrim DS - 800-160 mg 1 tab Twice a Day 3. dexamethasone - 4 mg 2 tab Daily 4. levothyroxine - 50 mcg 1 Capsule Daily 5. multivitamin - 1 Capsule Daily Medications Last Reconciled by Nidia Huntley MA on 11/28/2024 ALLERGIES: Penicillin V; Penicillin V REVIEW OF SYSTEMS: A complete 14-point review of systems was performed and is negative except as noted in interval history. PHYSICAL EXAMINATION: VITAL SIGNS: Temperature?97.8, B/P?120/78, Oxygen?Saturation?96% Weight?178?lbs (Change?since?03/26/25:?-2?lbs) PAIN: 0 - No pain ECOG Performance Status: 1 - Symptomatic; ambulatory; restricted in strenuous activity GENERAL APPEARANCE: Appears well, in no apparent distress, appropriately interactive. HEENT: Normocephalic, no temporal wasting, normal conjunctiva, no scleral icterus, normal hearing, lips without lesions, neck normal range of motion. Lymph nodes are very small in the neck and barely palpable CARDIOVASCULAR: Not assessed. PULMONARY: Normal respiratory effort, no respiratory distress or use of accessory muscles, speaking in full sentences, no tachypnea. EXTREMITIES: No pedal edema or cyanosis. SKIN: Normal skin appearance. NEUROLOGIC: Alert and oriented x4. PSHYCHIATRIC: Appropriate affect, mood normal, behavior normal, intact thought and speech. LABORATORY DATA: I have personally reviewed and interpreted each of the patient?s relevant lab tests, abnormal findings are below: Date 01/13/25 03/25/25 ??WHITE?BLOOD?COUNT?(Thou/mm3) 3.2?L 2.5?L ??RED?BLOOD?COUNT?(Miln/mm3) 4.77 5.05 ??HEMOGLOBIN?(gm/dl) 12.5?L 13.1?L ??HEMATOCRIT?(%) 38.5?L 40.5?L ??PLATELET?COUNT?(Thou/mm3) 266 205 ??NEUTROPHILS?%,?AUTO?(%) 31?L 39 ??LYMPH?%,?AUTO?(%) 52?H 44 ??NEUTROPHILS,?AUTO?(Thou/mm3) 1.0?L 1.0?L ??GLUCOSE,RANDOM?(mg/dL) ? 82 ??BLOOD?UREA?NITROGEN?(mg/dL) ? 6?L ??CREATININE?(mg/dL) ? 0.80 ??SODIUM?(mmol/L) ? 142 ??POTASSIUM?(mmol/L) ? 3.7 ??CHLORIDE?(mmol/L) ? 105 ??CrCl?(CandG)?(ml/min) ? 149.50 ??AST/SGOT?(Unit/L) ? 27 ??ALT/SGPT?(Unit/L) ? 21 ??ALKALINE?PHOSPHATASE?(Unit/L) ? 121?H ??BILIRUBIN,?TOTAL?(mg/dL) ? 0.6 ??PROTEIN?TOTAL?(gm/dl) ? 6.7 ??ALBUMIN,?SERUM?(gm/dl) ? 4.5 ??GLOBULIN?(gm/dl) ? 2.2?L ??ALBUMIN/GLOBULIN?RATIO ? 2.0 ??CALCIUM,?SERUM?(mg/dL) ? 9.8 ??CALCIUM?SERUM?(CORRECTED)?(mg/dL) ? 9.8 ??LDH,?TOTAL?(Unit/L) ? 170 ASSESSMENT/PLAN: Hodgkin lymphoma Patient have Hodgkin lymphoma and is already received 1 cycle of ABVD Assessment: Patient has completed chemotherapy (1 full ABVD, [address] Susan Dasilva, and 3 with current provider) with one cycle remaining. Recent PET scan from October 29 shows interval decrease in size and affinity of mediastinal lymph nodes, equivalent to hepatic activity. Patient completed another PET scan at [facility] after completion of therapy. And was told no further treatment needed Now concerned for recurrence Advised to go to [facility] for immediate evaluation. [facility] of dr susan dasilva for pet scan . labs ordered . ORDERS: Order # Description [id number] Comprehensive Metabolic Panel - 12 + CBC with Auto Diff + Uric Acid, Serum [id number] Lactate Dehydrogenase (LDH) [id number] Thyroid Stimulating Hormone + Assay Triiodothyronine (T3) RETURN TO CLINIC: I reviewed the diagnosis, prognosis, and recommended treatment/procedure options with the patient (and/or their legal maintenance representative), including the potential benefits, risks, side effects and alternative therapies. We also discussed the option of no treatment and the possibility of clinical trial participation, if applicable. All questions were addressed, and they demonstrated understanding. They provided informed consent to proceed with the proposed plan of care. BILLING AND COMPLIANCE: I reviewed external records from providers outside my specialty as summarized above. I spent a total of 50 minutes on this patient?s care on the day of their visit excluding time spent related to any billed procedures. This time includes time spent with the patient as well as time spent documenting in the medical record, reviewing patients records and tests, obtaining history, placing orders, communicating with other healthcare professionals, counseling the patient, family or caregiver, and/or care coordination for the diagnoses above. Electronically Signed by: Anmol Ashby MD T: 10:37 PM CC: PCP: Referring: Linda Morales This document was completed utilizing speech recognition software. Grammatical errors, random word insertions, pronoun errors, and incomplete sentences are an occasional consequence of this system due to software limitations, ambient noise, and hardware issues. Any formal questions or concerns about the content, text or information contained within the body of this dictation should be directly addressed to the provider for clarification.
[2025-04-22 16:34] LABS: Basophils # (Auto) 0.0 Thou/mm3 (0.0-0.2); Basophils % (Auto) 1 % (0-2.5); Eosinophils # (Auto) 0.3 Thou/mm3 (0.0-0.5); Eosinophils % (Auto) 8 % (0-10); Hematocrit 42.6 % (41.0-53.0); Hemoglobin 13.6 g/dL (13.5-16.0); Immature Granulocytes Auto 0.01 Thou/mm3 (0.00-0.00); Lymphocytes # (Auto) 1.3 Thou/mm3 (1.0-5.0); Lymphocytes % (Auto) 36 % (10-50); Mean Corpuscular HGB Conc 31.9 g/dl (31.0-37.0); Mean Corpuscular Hemoglobin 24.9 pg (25.0-35.0); Mean Corpuscular Volume 78 fL (80-100); Monocytes # (Auto) 0.4 Thou/mm3 (0.0-0.8); Monocytes % (Auto) 11 % (0-12); Neutrophils # (Auto) 1.6 Thou/mm3 (1.8-7.7); Neutrophils % (Auto) 44 % (37-80); Nucleated Red Blood Cell # 0.00 Thou/mm3 (0.00-0.00); Nucleated Red Blood Cell % 0 /100 WBC (0); Platelet Count 231 Thou/mm3 (140-440); RDW Standard Deviation 40.5 fL (35.1-43.9); Red Blood Count 5.47 Miln/mm3 (4.50-5.90); White Blood Count 3.7 Thou/mm3 (4.5-11.0)
[2025-04-22 17:13] LABS: Free T3 3.7 pg/mL (3.0-4.7)
[2025-04-22 17:14] LABS: Ferritin 10 ng/mL (10.5-307.3); Folate 22.00 ng/mL (>5.38); Iron 49 mcg/dL (65-175); Percent Iron Saturation 14 % (20-55); Total Iron Binding Capacity 346 mcg/dL (250-425); Unsaturated Iron Binding 297 (225-295); Vitamin B12 710 pg/mL (211-911)
[2025-04-22 17:16] LABS: Alanine Aminotransferase 14 U/L (10-49); Albumin, Serum 4.5 gm/dL (3.5-5.0); Albumin/Globulin Ratio 2.0 (1.2-2.2); Alkaline Phosphatase 134 U/L (46-116); Anion Gap 11 (7-16); Aspartate Amino Transferase 23 U/L (0-34); BUN/Creatinine Ratio 12 Ratio (12-20); Bilirubin,Total 0.5 mg/dL (0.3-1.2); Blood Urea Nitrogen 13 mg/dL (9-23); Calcium 9.7 mg/dL (8.3-10.6); Calcium (Corrected) 9.7 mg/dL (8.5-10.1); Carbon Dioxide 24.4 mMol/L (20.0-31.0); Chloride 104 mMol/L (98-107); Creatinine (Component) 1.1 mg/dL (0.6-1.3); Globulin 2.3 gm/dL (2.3-3.5); Glucose 89 mg/dL (74-106); LDH (Lactate Dehydrogenase) 192 U/L (120-246); Osmolality,Calculated 276 (275-295); Potassium 4.0 mMol/L (3.4-5.1); Sodium 139 mMol/L (136-145); Thyroid Stimulating Hormone 2.40 uIU/mL (0.55-4.78); Total Protein 6.8 gm/dL (5.7-8.2); Uric Acid 6.4 mg/dL (3.7-9.2); eGFR > 60 See Note
== END 2025-04-29 23:59 | disposition home or self-care (01) ==
LOC: SCTC 15:04
PROVIDERS: PCP Internal Medicine Hematology; Referring Provider Internal Medicine Hematology; Visit Provider Internal Medicine Hematology & Oncology
DX: C81.90 Hodgkin lymphoma, unspecified, unspecified site (principal)
CPT/HCPCS: 36591; 80053; 82607; 82728; 82746; 83540; 83550; 83615; 84443; 84481; 84550; 85025; 99212; A4216; J1642; G0463

== ENCOUNTER → 2025-06-03 | Outpatient (CLI) | payer OTHER, SELFPAY ==
--- NOTE | 2025-06-03 10:30 | ECHO_ITS ---
Patient Info Name: Shai Lynch Age: 19 years : 2005 Gender: Male Ht: 170 cm Wt: 79 kg BSA: 1.95 m2 BP: 158 / 78 mmHg HR: 85 bpm Exam Date: 06/03/2025 10:50 AM Admit Date: 06/03/2025 Site: [facility] Room Number: Echo Patient Status: O Technical Quality: Good Exam Type: CA echo doppler complete Staff Nuclear Medicine Technologist: Jeannette Fritz Ordering Physician: Anmol Ashby Referring Physician: Anmol Ashby Study Info Indications Other Hodgkin lymphoma, unspecified site - Primary Location: [facility] Prior Interventions previous echo 02/16/25- same. Left Ventricular Outflow Tract Name Value Normal LVOT Doppler LVOT Peak Velocity 111 cm/s LVOT Mean Gradient 3 mmHg LVOT VTI 21 cm LVOT VTI/AV VTI Ratio 0.8 Pulmonic Valve Name Value Normal PV Doppler PV Peak Velocity 110 cm/s Mitral Valve Name Value Normal MV Doppler MV Decel Barnes 938 cm/s2 MV PHT 32 ms MV Area (PHT) 7.0 cm2 MV Diastolic Function MV E Peak Velocity 102 cm/s 60-126 MV A Peak Velocity 83 cm/s 18-67 MV E/A 1.2 1.2-3.5 MV Annular TDI MV Septal e' Velocity 11.7 cm/s 9.5-18.7 MV E/e' (Septal) 8.7 3.7-10.1 MV Lateral e' Velocity 20.5 cm/s 13.5-25.8 MV E/e' (Lateral) 5.0 2.0-8.0 MV e' Average 16.10 cm/s 12.07-21.55 MV E/e' (Average) 6.8 2.9-8.6 Tricuspid Valve Name Value Normal TV Regurgitation Doppler TR Peak Velocity 257 cm/s Estimated PAP/RSVP RA Pressure 3 mmHg PA Systolic Pressure 29 mmHg RV Systolic Pressure 29 mmHg Aortic Valve Name Value Normal AV 2D/MM AV Cusp Sep (MM) 10.0 mm AV Doppler AV Peak Velocity 141 cm/s AV Mean Gradient 4 mmHg AV VTI 26 cm AV DI (Yuniel) 0.79 Ventricles Name Value Normal LV Dimensions 2D/MM IVS Diastolic Thickness (2D) 9.0 mm 6.5-10.9 LVID Diastole (2D) 42.0 mm 45.4-59.0 LVIW Diastolic Thickness (2D) 10.0 mm 6.7-10.3 LVID Systole (2D) 23.0 mm 28.5-39.6 LV Mass (2D Cubed) 127.81 g 107.09-187.06 LV Mass Index (2D Cubed) 65 g/m2 Relative Wall Thickness (2D) 0.48 IVS/LVIW Diastolic Thickness (2D) 0.90 0.80-1.28 LV Fractional Shortening/Ejection Fraction 2D/MM LV Fractional Shortening (2D) 45 % 28-42 LV EF (2D Teichholz) 77 % Atria Name Value Normal LA Dimensions LA Volume (4C A-L) 30 ml LA Volume (BP A-L) 29 ml 33-98 Left Ventricle Left ventricular chamber dimension is normal. Left ventricular systolic function is normal with visually estimated ejection fraction of 60-65%. There is normal geometry noted in the left ventricle. Left ventricular segmental wall motion is normal. There is normal diastolic function in the left ventricle. Right Ventricle Right ventricular chamber dimension and systolic function is normal. Right ventricular systolic function is normal. Left Atrium Left atrial chamber dimension is normal. Right Atrium Right atrial chamber dimension is normal. Aortic Valve The aortic valve is trileaflet. There is no aortic valve sclerosis. There is no aortic valve stenosis. There is no aortic valve regurgitation. Pulmonic Valve The pulmonic valve is normal. There is no pulmonic valve stenosis. There is no pulmonic regurgitation. Mitral Valve The mitral valve has normal leaflets. There is no mitral valve stenosis. There is trace mitral valve regurgitation. Tricuspid Valve The tricuspid valve leaflets are normal. There is no tricuspid valve stenosis. There is trace tricuspid valve regurgitation. No pulmonary hypertension, estimated pulmonary arterial systolic pressure is 29 mmHg and systemic blood pressure of 158 mmHg in systole. Pericardium/Pleural The pericardium appears normal. There is no pericardial effusion. No pleural effusion visualized. Inferior Vena Cava Normal inferior vena cava with >50% collapse upon inspiration consistent with normal right atrial pressure, 3 mmHg. Aorta The aortic measurements are indexed to age and body surface area. The aortic root at the sinus of Valsalva is not well visualized. The prox ascending aorta is not well visualized. Summary 1. Left ventricle size is normal and systolic function is normal. Estimated ejection fraction is 60-65%. There is normal diastolic function. 2. Right ventricular chamber dimension and systolic function is normal. 3. There is trace MR and TR. 4. Normal IVC with estimated RA pressure 3 mmHg. 5. previous echo 02/16/25- same. Report Signatures Finalized by Migel Winchester on 06/03/2025 04:11 PM
== END | disposition home or self-care (01) ==
PROVIDERS: PCP Family Medicine; Referring Provider Internal Medicine Hematology & Oncology; Visit Provider Internal Medicine Hematology & Oncology
DX: I08.1 Rheumatic disorders of both mitral and tricuspid valves (principal); C81.70 Other Hodgkin lymphoma, unspecified site
CPT/HCPCS: 93306

== ENCOUNTER 2025-06-16 14:56 | Outpatient (RCR) | payer OTHER, SELFPAY | END 2025-06-29 23:59 | disposition home or self-care (01) | LOC: SCTC 14:56 | PROVIDERS: PCP Family Medicine; Referring Provider Family Medicine; Visit Provider Internal Medicine Hematology & Oncology | DX: Z45.2 Encounter for adjustment and management of vascular access device (principal); C81.90 Hodgkin lymphoma, unspecified, unspecified site | CPT/HCPCS: 36591; 96523; A4216; J1642 ==